=== PATIENT | female | born 1980 | race Hispanic/Latino ===

== ENCOUNTER → 2018-05-11 | Emergency (ER) | payer OTHER ==
[~2018-05-11] MED LIST: HYDROcodone/Acetaminophen 5/325 mg Tablet ONE
--- NOTE | 2018-05-12 07:37 | RAD ---
LEFT ANKLE 3 VIEWS: DATE: 05/11/2018. FINDINGS: The nondisplaced fracture of the distal fibula is seen just above the lateral malleolus. The tibia a ppears intact. The ankle joint itself shows no widening. IMPRESSION: Distal fibular fracture. POS: HOME
--- NOTE | 2018-05-12 07:38 | RAD ---
LEFT LEG 2 VIEWS: DATE: 05/11/2018. FINDINGS: There is a nondisplaced fracture of the distal fibula that is not easily seen on this view compared t o the ankle views, but on the lateral view one can faintly see a fracture line. The remainder of the tibia and fibula appeared intact. IMPRESSION: Subtle fracture of the distal fibula. POS: HOME
== END ==
LOC: BURERS 21:46
DX: S82.65XA Nondisplaced fracture of lateral malleolus of left fibula, initial encounter for closed fracture (principal); X50.1XXA Overexertion from prolonged static or awkward postures, initial encounter

== ENCOUNTER 2020-06-26 11:22 | Emergency (ER) | payer OTHER, SELFPAY ==
--- NOTE | 2020-06-26 13:50 | RAD ---
LEFT ANKLE 3 VIEWS: Date: 06/26/2020 The oblique view, in particular, shows a subtle hairline fracture or two of the distal fibular shaft that extends into the lateral malleolus. There is no displacement. The distal tibia and dome of the t alus appear intact. Soft tissue swelling is seen laterally as expected. IMPRESSION: Subtle hairline fracture of the distal fibula. POS: HOME
--- NOTE | 2020-06-26 13:51 | RAD ---
LEFT LEG 2 VIEWS: Date: 06/26/2020 No major fracture of the tibia or fibula seen. However, please see dictation on the ankle which showe d some more subtle findings. IMPRESSION: No fracture seen on these films, but see ankle dictation. POS: HOME
== END 2020-06-26 13:06 | disposition home or self-care (01) ==
LOC: BURERS 11:22
DX: S82.65XA Nondisplaced fracture of lateral malleolus of left fibula, initial encounter for closed fracture (principal); W17.89XA Other fall from one level to another, initial encounter
CPT/HCPCS: 27786